=== PATIENT | female | born 1950 | race Two or more races ===

== ENCOUNTER 2019-11-03 07:25 | Day surgery (SDC) | payer OTHER | END 2019-11-03 13:25 | disposition home or self-care (01) | LOC: AMB-ENDOS 07:25 | PROVIDERS: ATTEND Colon & Rectal Surgery | DX: K62.89 Other specified diseases of anus and rectum (principal); K64.1 Second degree hemorrhoids; Z12.11 Encounter for screening for malignant neoplasm of colon; Z20.828 Contact with and (suspected) exposure to other viral communicable diseases ==

== ENCOUNTER 2020-01-02 10:45 | Inpatient (IN) | payer OTHER ==
[~2020-01-02] VITALS: Ht 162.6 cm; Wt 82.6 kg
[2020-01-10] MEDS ORDERED: ALENDRONATE SOD70 MG (08:06)
== END 2020-01-12 16:11 | disposition home or self-care (01) | DRG 331 ==
LOC: EDSTATUS 10:45 → O/R 01-09 07:32 → SURH 01-09 07:32 → EDSTATUS 01-09 10:45 → SURH 01-09 10:45 → CIR.AMB 01-09 10:45 → SURH 01-09 20:58
PROVIDERS: ADMIT Colon & Rectal Surgery; ATTEND Colon & Rectal Surgery
PROC: 0DBN4ZZ Excision of Sigmoid Colon, Percutaneous Endoscopic Approach (ICD-10-PCS; 2020-01-09)
PROC: 0DJD8ZZ Inspection of Lower Intestinal Tract, Via Natural or Artificial Opening Endoscopic (ICD-10-PCS; 2020-01-09)
PROC: 0DTP4ZZ Resection of Rectum, Percutaneous Endoscopic Approach (ICD-10-PCS; principal; 2020-01-09 10:15)
DX: K59.02 Outlet dysfunction constipation (principal); E66.8 Other obesity; Z68.31 Body mass index [BMI] 31.0-31.9, adult; M81.0 Age-related osteoporosis without current pathological fracture

== ENCOUNTER 2021-03-02 12:38 | Emergency (ER) | payer OTHER ==
[~2021-03-02] VITALS: Ht 162.6 cm; Wt 84.8 kg
[~2021-03-02 12:38] MED LIST: ALENDRONATE SOD70 MG
[2021-03-02] MEDS ORDERED: MUCINEX DM ER1 EAC1 PO (16:05)
[2021-03-02] MEDS ORDERED: MEDROLPACK PO (16:05)
== END 2021-03-02 16:15 | disposition home or self-care (01) ==
LOC: ER 12:38
DX: J06.9 Acute upper respiratory infection, unspecified (principal); Z20.822 Contact with and (suspected) exposure to COVID-19